=== PATIENT | female | born 1980 | race Caucasian/White ===

== ENCOUNTER 2025-06-30 06:31 | Day surgery (SDC) | payer OTHER ==
[2025-06-30] MEDS ORDERED: Midazolam 1 MG/ML 2 ML SDV IV ONE (06:32)
[2025-06-30] MEDS ORDERED: Sodium Chloride 0.9% 10 ML Syringe IV ONE (06:32)
[2025-06-30] MEDS ORDERED: Dexamethasone 4 MG/ML SDV IV ONE (06:32)
[2025-06-30] MEDS ORDERED: Ondansetron 4 MG/2 ML SDV IVPUSH PRN (07:00)
[2025-06-30] MEDS: Sodium Chloride 0.9% 10 ML Syringe FLUSH PRN (07:05)
[2025-06-30] MEDS: Moxifloxacin 0.5% Ophth Soln 3 ML Bottle EYELF ONE (07:14)
[2025-06-30] MEDS: Povidone-Iodine 5% Sterile Ophth Soln 30 ML Bottle EYELF ONE ×2 (07:15→07:48)
[2025-06-30] MEDS: Phenylephrine 10% Ophth Soln 5 ML Bot EYELF ONE (07:16)
[2025-06-30] MEDS: Cataract Ophth Solution EYELF ONE (07:18)
[2025-06-30] MEDS: Timolol Maleate 0.5% Ophth Soln 5 ML Bottle EYELF ONE (07:19)
[2025-06-30] MEDS: Diclofenac Sodium 0.1% Ophth Soln 5 ML Bottle EYELF ONE (07:48)
[2025-06-30] MEDS: Apraclonidine 0.5% Ophth Soln 5 ML Bot EYELF ONE (07:48)
[2025-06-30] MEDS: Dexamethasone/Neomycin/Polymyxin B Ophth Oint 3.5 GM Tube EYELF ONE (07:56)
== END 2025-06-30 08:29 | disposition home or self-care (01) ==
LOC: DL.SDS 06:31
PROVIDERS: ATTEND Ophthalmology
DX: H25.812 Combined forms of age-related cataract, left eye (principal); F17.210 Nicotine dependence, cigarettes, uncomplicated; Z79.899 Other long term (current) drug therapy
CPT/HCPCS: 66984; A9270; J2003; J3373; J1100; J2250; J3490; V2632

== ENCOUNTER 2025-10-03 00:41 | Emergency (ER) | payer OTHER ==
[2025-10-03] MEDS: Ketorolac 30 MG/ML SDV IM ONE (01:11)
== END 2025-10-03 01:54 | disposition home or self-care (01) ==
LOC: DL.ED 00:41
DX: S93.491A Sprain of other ligament of right ankle, initial encounter (principal); F17.210 Nicotine dependence, cigarettes, uncomplicated; W22.8XXA Striking against or struck by other objects, initial encounter
CPT/HCPCS: 73630; 96372; 99283; J1885